=== PATIENT | male | born 1940 | race Caucasian/White ===

== ENCOUNTER 2016-09-21 13:14 | Emergency (ER) | payer OTHER, MEDICARE ==
[~2016-09-21] VITALS: Ht 172.7 cm; Wt 83.9 kg
[2016-09-21] MEDS ORDERED: MORP15TA PO (13:45)
[2016-09-21] MEDS ORDERED: DIPHTH,PERTUSS(ACELL),TET TOX 0.5 ML DISP.SYRIN. VAX IM ONE (13:45)
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
[2016-09-21 15:07] VITALS: BP 160/89
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
== END 2016-09-21 15:08 | disposition home or self-care (01) ==
LOC: ER 13:14
DX: M25.531 Pain in right wrist (principal); M54.2 Cervicalgia; E78.00 Pure hypercholesterolemia, unspecified
CPT/HCPCS: 29125; 70450; 72125; 73110; 90471; 90715; 99284-25